=== PATIENT | male | born 1930 | race Caucasian/White ===

== ENCOUNTER 2020-10-12 04:43 | Day surgery (SDC) | payer OTHER, MEDICARE ==
[2020-10-11 12:51] VITALS: BMI 24.2
[2020-10-12] MEDS ORDERED: PROPOFOL 20 ML ONE (09:58)
[2020-10-12] MEDS ORDERED: ceFAZolin SODIUM 1 GM VIAL IVPB ONE (10:20)
[2020-10-12] MEDS ORDERED: ceFAZolin SODIUM 1 GM VIAL ONE (10:23)
[2020-10-12] MEDS ORDERED: DEXAMETHASONE SOD PHOSPHATE 4 MG/1 ML VIAL ONE (10:23)
[2020-10-12] MEDS ORDERED: FUROSEMIDE 40 MG/4 ML INJECTABLE VIAL ONE (10:51)
[2020-10-12] MEDS ORDERED: ELECTROLYTE-148 SOLN 1,000 ML IV SCH (11:30)
[2020-10-12] MEDS ORDERED: ACETAMINOPHEN INJECTION 100 ML IVPB ONE (11:53)
[2020-10-12] MEDS ORDERED: ONDANSETRON 4 MG/2 ML VIAL IVPUSH PRN (13:18)
[2020-10-12] MEDS ORDERED: oxyCODONE HCL 5 MG TABLET PO PRN (13:18)
[2020-10-12] MEDS ORDERED: ACETAMINOPHEN 1000 MG/100 ML VIAL (NON FORMULARY) IVPB ONE (13:19)
[2020-10-12] MEDS ORDERED: LACTATED RINGERS SOLUTION 1,000 ML IV SCH (13:30)
[2020-10-12 15:42] VITALS: BP 140/71; PULSE 66; TEMP 98.8
== END 2020-10-12 15:45 | disposition home or self-care (01) ==
LOC: JASU-SURG 04:43
PROVIDERS: ATTEND Urology
PROC: 0VT08ZZ Resection of Prostate, Via Natural or Artificial Opening Endoscopic (ICD-10-PCS; principal; 2020-10-12 10:00)
DX: N40.1 Benign prostatic hyperplasia with lower urinary tract symptoms (principal); R33.8 Other retention of urine
CPT/HCPCS: 94760; J0131